=== PATIENT | female | born 1970 | race Caucasian/White ===

== ENCOUNTER 2024-06-22 10:34 | Outpatient (CLI) | payer OTHER, SELFPAY ==
--- NOTE | 2024-06-22 12:12 | W.ANESCHARGE ---
Anesthesia Charges Start Date/Time Anesthesia Start Date: 06/22/24 Anesthesia Start Time: 12:15 Stop Date/Time Anesthesia Stop Date: 06/22/24 Anesthesia Stop Time: 12:40
--- NOTE | 2024-06-22 13:18 | W.ANESCHARGE ---
Anesthesia Charges Start Date/Time Anesthesia Start Date: 06/22/24 Anesthesia Start Time: 12:15 Stop Date/Time Anesthesia Stop Date: 06/22/24 Anesthesia Stop Time: 12:40
== END 2024-06-22 10:35 | disposition home or self-care (01) ==
LOC: OP CLINIC 10:36
PROVIDERS: PCP Family Medicine; Visit Provider Internal Medicine Gastroenterology
DX: Z12.11 Encounter for screening for malignant neoplasm of colon (principal); K57.30 Diverticulosis of large intestine without perforation or abscess without bleeding
CPT/HCPCS: 00811; 00812; 45378; J2704